=== PATIENT | male | born 1995 | race Caucasian/White ===

== ENCOUNTER 2023-02-19 13:25 | Outpatient (CLI) | payer OTHER, SELFPAY | END 2023-02-19 13:26 | disposition home or self-care (01) | PROVIDERS: PCP Family Medicine; Visit Provider Family Medicine | DX: Z00.00 Encounter for general adult medical examination without abnormal findings (principal); Z13.6 Encounter for screening for cardiovascular disorders; Z13.1 Encounter for screening for diabetes mellitus | CPT/HCPCS: 80053; 80061 ==

== ENCOUNTER 2023-09-05 16:03 | Outpatient (CLI) | payer OTHER, SELFPAY ==
--- NOTE | 2023-09-05 16:00 | CRLHL7_ITS ---
For Patients: As a result of the Century Cures Act, medical imaging exams and procedure reports are released immediately into your electronic medical record. You may view this report before your referring provider. If you have questions, please contact your health care provider. INDICATION: Dull ache posteriorly and laterally on both sides TECHNIQUE: Conventional two-dimensional marshall-scale ultrasound of the scrotum as well color-flow and pulsed Doppler of the testes. COMPARISON: None. FINDINGS: Both testes are normal in size, shape and echogenicity. The right testis measures 5.0 x 2.6 x 2.9 cm and the left 4.6 x 2.3 x 3.0 cm. Color flow Doppler demonstrates normal testicular and epididymal blood flow. No epididymal abnormality is evident. No hydrocele is noted. No varicocele is demonstrated. IMPRESSION: Normal scrotal ultrasound. Dictated by Jose Granado MD @ 09/07/2023 12:16:00 PM (Electronically Signed)
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
== END 2023-09-05 16:04 | disposition home or self-care (01) ==
LOC: US 16:03
PROVIDERS: PCP Family Medicine; Visit Provider Family Medicine
DX: N50.89 Other specified disorders of the male genital organs (principal)
CPT/HCPCS: 76870; 93976

== ENCOUNTER 2024-05-15 06:30 | Outpatient (CLI) | payer OTHER, SELFPAY ==
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
== END 2024-05-15 06:31 | disposition home or self-care (01) ==
LOC: NFLDREF 05-19 15:48
PROVIDERS: PCP Family Medicine; Referring Provider Family Medicine; Visit Provider Registered Nurse
DX: Z31.41 Encounter for fertility testing (principal)
CPT/HCPCS: 89322

== ENCOUNTER 2025-07-27 15:20 | Outpatient (CLI) | payer OTHER, SELFPAY | END 2025-07-27 15:21 | disposition home or self-care (01) | PROVIDERS: PCP Family Medicine; Visit Provider Family Medicine | DX: Z00.00 Encounter for general adult medical examination without abnormal findings (principal) | CPT/HCPCS: 80053; 80061 ==